=== PATIENT | male | born 1955 | race Caucasian/White ===

== ENCOUNTER 2020-05-31 21:13 | Outpatient (REF) | payer BC, SELFPAY ==
[2020-06-03 17:52] LABS: COVID-19 RT-PCR UVMMC Result Negative (Negative)
== END 2020-05-31 21:33 ==
LOC: NCHCN 21:13
PROVIDERS: PCP Physician Assistant Medical; Visit Provider Physician Assistant Medical
DX: Z11.59 Encounter for screening for other viral diseases (principal)
CPT/HCPCS: U0003

== ENCOUNTER 2020-11-28 14:01 | Outpatient (CLI) | payer BC, SELFPAY ==
--- NOTE | 2020-11-28 | DI.RAD_ITS ---
Exam(s) XR HEEL LT OS CALCIS EXAM: XR HEEL LT OS CALCIS CLINICAL HISTORY: HEEL PAIN LT, [id number]. TECHNIQUE: 2D digital imaging was performed. COMPARISON: No exams were available for comparison FINDINGS: Two dedicated views of the left can heal-calcaneus reveal a fracture of the inferior aspect with mild displacement. There is no radiopaque foreign body. Incidentally noted is calcification of the insertion site of the Achilles on the posterior calcaneus. IMPRESSION: There is a fracture of the posterior half of the calcaneus. There is widening at the inferior cortex fracture site. Fracture does not appear to extend to the superior cortex nor to the level of the franklin btalar joint. DATA REPOSITORY: RADIATION DOSE DELIVERED:
== END 2020-11-28 14:21 ==
PROVIDERS: PCP Physician Assistant Medical; Visit Provider Physician Assistant Medical
DX: S92.002A Unspecified fracture of left calcaneus, initial encounter for closed fracture (principal); X58.XXXA Exposure to other specified factors, initial encounter
CPT/HCPCS: 73650

== ENCOUNTER 2020-12-04 15:27 | Outpatient (CLI) | payer BC, SELFPAY ==
--- NOTE | 2020-12-04 15:45 | DI.RAD_ITS ---
Exam(s) XR ANKLE LT COMPLETE EXAM: XR ANKLE LT COMPLETE CLINICAL HISTORY: fx left heel. TECHNIQUE: 2D digital imaging was performed. COMPARISON: Prior x-rays 11/28/2020 FINDINGS: The fracture in the inferior calcaneus is again noted and appears unchanged. Incidentally noted a he aled fracture site mid fibula. IMPRESSION: DATA REPOSITORY: RADIATION DOSE DELIVERED:
== END 2020-12-04 15:28 | disposition home or self-care (01) ==
LOC: DIORS 15:27
PROVIDERS: PCP Physician Assistant Medical; Referring Provider Physician Assistant Medical; Visit Provider Physician Assistant
DX: S92.002D Unspecified fracture of left calcaneus, subsequent encounter for fracture with routine healing (principal)
CPT/HCPCS: 73610

== ENCOUNTER 2021-01-22 15:08 | Outpatient (CLI) | payer BC, SELFPAY ==
--- NOTE | 2021-01-22 15:00 | DI.RAD_ITS ---
Exam(s) XR HEEL LT OS CALCIS EXAM: XR HEEL LT OS CALCIS INDICATION: calcaneus fx, left f/u. COMPARISON: CR XR ANKLE LT COMPLETE from 12/04/2020 TECHNIQUE: 2D digital imaging was performed. FINDINGS: There has been no change in the alignment of the fracture of the inferior calcaneal tuberosity. No n ew abnormalities. DATA REPOSITORY: RADIATION DOSE DELIVERED:
== END 2021-01-22 15:09 | disposition home or self-care (01) ==
LOC: DIORS 15:08
PROVIDERS: PCP Physician Assistant Medical; Referring Provider Physician Assistant Medical; Visit Provider Student in an Organized Health Care Education/Training Program
DX: S92.002D Unspecified fracture of left calcaneus, subsequent encounter for fracture with routine healing (principal); X58.XXXD Exposure to other specified factors, subsequent encounter
CPT/HCPCS: 73650

== ENCOUNTER 2021-02-19 13:37 | Outpatient (CLI) | payer BC, SELFPAY ==
--- NOTE | 2021-02-19 13:30 | DI.RAD_ITS ---
Exam(s) XR HEEL LT OS CALCIS EXAM: XR HEEL LT OS CALCIS INDICATION: calcaneus fx f/u. COMPARISON: CR XR HEEL LT OS CALCIS from 11/28/2020 CR XR ANKLE LT COMPLETE from 12/04/2020 CR XR ANKLE LT COMPLETE from 12/04/2020 CR XR HEEL LT OS CALCIS from 01/22/2021 TECHNIQUE: 2D digital imaging was performed. FINDINGS: There has been no change in the alignment of the fracture of the inferior calcaneal tuberosity. Smal l heel spur is again noted. No new abnormalities. DATA REPOSITORY: RADIATION DOSE DELIVERED:
== END 2021-02-19 13:38 | disposition home or self-care (01) ==
LOC: DIORS 13:37
PROVIDERS: PCP Physician Assistant Medical; Visit Provider Student in an Organized Health Care Education/Training Program
DX: S92.042D Displaced other fracture of tuberosity of left calcaneus, subsequent encounter for fracture with routine healing (principal)
CPT/HCPCS: 73650